=== PATIENT | male | born 1945 | race Caucasian/White ===

== ENCOUNTER 2020-09-24 17:33 | Inpatient (IN) | payer MEDICARE ==
[~2020-09-24] VITALS: Ht 162.6 cm; Wt 57.6 kg
[~2020-09-24 17:33] MED LIST: ASPI-605 PO; LISI10TA30 PO; SIMV10TA98 PO
--- NOTE | 2020-09-24 17:51 | NUR ---
YOSEF FROM HOME TO ER BED 2. AAOX4. NOT IN RESP DISTRESS. BROUGHT IN FOR R WRIST OPEN FRACTURE. PT WAS HYPOGLYCEMIC OF 35 AND FELL LANDING ON HIS ARM. NOTED POSITIVE DEFORMITY AND AN KARIS WOUND ON THE R WRST. PEDAL PULSE APPRECIATED, NORMAL COLOR AND TEMP, ABLE TO FEEL SENSATION AND MOVE. CURENT BS IS 122. PT WAS GIVEN D10 BY EMS WEIGHT LOSS SALES CONSULTANT. WAS AT THE BEDSIDE FOR EVAL. ORDERS RECEIVED AND WILL CINTHIA OUT.
--- NOTE | 2020-09-24 17:56 | NUR ---
CALLED DR. HARRIS NOT FORECLOSURE CLERK... CALLING DR. CRUZ
[2020-09-24] MEDS ORDERED: LINA290C PO (17:58)
--- NOTE | 2020-09-24 17:58 | NUR ---
CALLED DR. CRUZ [phone] WILL BE PAGED.
[2020-09-24] MEDS ORDERED: CLINDAMYCIN 900 MG in IV D5W 100 ML IV ONE (18:00)
[2020-09-24] MEDS ORDERED: CLINDAMYCIN 900 MG/6 ML VIAL ONE (18:07)
[2020-09-24] MEDS ORDERED: LIDOCAINE HCL/MPF 1% 30 ML VIAL IJ ONE (18:11)
[2020-09-24] MEDS ORDERED: FENTANYL PF 100MCG/2ML AMPUL ONE (18:12)
[2020-09-24] MEDS ORDERED: LIDOCAINE HCL/PF 1% 30 ML SDV IJ ONE (18:30)
[2020-09-24] MEDS ORDERED: FENTANYL PF 100MCG/2ML AMPUL IV ONE (18:30)
[2020-09-24 18:51] LABS: BASOPHILS # (AUTO) 0.1 /CMM (0.0-0.2); BASOPHILS % (AUTO) 0.5 % (0.0-2.0); EOSINOPHILS % (AUTO) 0.2 % (0.0-6.0); HEMATOCRIT 36 % (39-51); HEMOGLOBIN 12.2 g/dL (13.5-17.5); LYMPHOCYTES # (AUTO) 0.8 /CMM (0.8-4.8); LYMPHOCYTES % (AUTO) 7.6 % (20.0-44.0); MEAN CORPUSCULAR HGB CONC 33 g/dl (31.0-36.0); MEAN CORPUSCULAR VOLUME 93 fL (80-96); MONOCYTES # (AUTO) 0.3 /CMM (0.1-1.30); NEUTROPHILS # (AUTO) 9.6 /CMM (1.8-8.9); NEUTROPHILS % (AUTO) 88.7 % (43.0-81.0); PLATELET COUNT (AUTO) 192 /CMM (150-450); RED BLOOD CELL COUNT(AUTO) 3.92 MIL/uL (4.5-6.0); WHITE BLOOD COUNT (AUTO) 10.8 K/uL (4.3-11.0)
[2020-09-24 18:58] LABS: CALCIUM, SERUM 8.6 mg/dL (8.5-10.1); CARBON DIOXIDE 28 mmol/L (21-32); CHLORIDE 100 mmol/L (98-107); CREATININE 0.9 mg/dL (0.6-1.3); GLUCOSE 70 mg/dL (74-106); POTASSIUM 4.1 mmol/L (3.5-5.1); SODIUM SERUM 137 mmol/L (136-145); UREA NITROGEN, BLOOD 22 mg/dL (7-18)
[2020-09-24 19:04] LABS: ALANINE AMINOTRANSFERASE 38 U/L (12-78); ALBUMIN 3.8 g/dL (3.4-5.0); ALCOHOL, BLOOD < 3 mg/dL (0-0); ALKALINE PHOSPHATASE 111 U/L (46-116); ASPARTATE AMINOTRANSFERASE 38 U/L (15-37); BILIRUBIN,DIRECT 0.1 mg/dL (0.0-0.2); BILIRUBIN,TOTAL 0.2 mg/dL (0.2-1.0); TOTAL PROTEIN, SERUM 6.8 g/dL (6.4-8.2)
--- NOTE | 2020-09-24 19:10 | NUR ---
EMT PLACED XEROFORM ON RT HAND AND PLACED RT HAND IN VOLAR SPLINT
--- NOTE | 2020-09-24 19:24 | NUR ---
COVID SWAB SENT TO LAB
[2020-09-24 19:32] LABS: CREATINE KINASE, TOTAL 224 U/L (39-308)
[2020-09-24] MEDS ORDERED: ACETAMINOPHEN 325 MG TABLET PO PRN (20:30)
[2020-09-24] MEDS ORDERED: DEXTROSE 50%-WATER 50 ML DISP.SYRIN IV PRN (20:30)
[2020-09-24] MEDS ORDERED: Z GUARD REMEDY 2 OZ OINT TP PRN (20:30)
[2020-09-24] MEDS ORDERED: ONDANSETRON HCL/PF 4 MG/2 ML VIAL IVP PRN (20:30)
[2020-09-24] MEDS ORDERED: TEMAZEPAM 15 MG CAPSULE PO PRN (20:30)
[2020-09-24] MEDS ORDERED: MAG HYDROX/AL HYDROX/SIMETH 30 ML UDC PO PRN (20:30)
[2020-09-24] MEDS ORDERED: MAGNESIUM HYDROXIDE 30 ML UDC PO PRN (20:30)
[2020-09-24] MEDS ORDERED: IV D5 LR 1,000 ML IV PRN (20:30)
[2020-09-24] MEDS ORDERED: MORPHINE SULFATE INJ 2 MG/ML DISP.SYRIN IV PRN (20:30)
--- NOTE | 2020-09-24 21:21 | NUR ---
REPORT GIVEN TO ALEJANDRA MENDES FOR LUCIA
--- NOTE | 2020-09-24 21:40 | NUR ---
MS RN NOTES RECEIVED REPORT FROM JESICA ROBERTS. PATIENT TRANSFERRED TO [place] 3W TO [facility]-2. PATIENT A/OX4 ABLE TO MAKE NEEDS KNOWN. ON ROOM AIR TOLERATING WELL WITH NO SOB. IV ON LAX #18G; INFUSING D5LR @ 60ML/HR;PATENT AND INTACT. SPLINT TO RIGHT WRIST; DRESSING KEPT C/D/I. ALL SAFETY MEASURES IN PLACE: BED IN LOWEST LOCKED POSITION, SIDE RAILS UPX2, CALL LIGHT WITHIN EASY REACH, BED ALARMS ON. PATIENT MEDICALLY STABLE AT THIS TIME.
--- NOTE | 2020-09-24 21:55 | NUR ---
RN NOTES - SURGERY CONSENT PATIENT ORIENTED TO ROOM, STAFF, AND UNIT. ALL BELONGINGS SIGNED AND ACCOUNTED FOR; SIGNED PATIENT BELONGINGS LIST. PATIENT SIGNED CONSENT FOR SURGERY: ORIF RIGHT RADIAL, ANESTHESIA, AND BLOOD TRANSFUSION.
[2020-09-24 22:00] VITALS: BP 143/71
[2020-09-24] MEDS: ENOXAPARIN SODIUM 30 MG/0.3 ML DISP.SYRIN SQ SCH (22:00)
[2020-09-24] MEDS: HYDROCODONE/APAP 5/325MG TABLET PO PRN (23:23)
[2020-09-24] MEDS: SIMVASTATIN 10 MG TABLET PO SCH (23:23)
--- NOTE | 2020-09-24 23:23 | NUR ---
MS RN NOTES PATIENT C/O RIGHT WRIST PAIN 01/16 PAIN. ADMINISTERED NORCO ORDERED. WILL CONTINUE TO ASSESS FOR PAIN
[2020-09-24] MEDS: BLOOD SUGAR DIAGNOSTIC 1 EACH STRIP IN SCH (23:32)
[2020-09-24] MEDS: INSULIN REGULAR, HUMAN 100 UNIT/ML 3 ML VIAL SQ PRN (23:37)
[2020-09-25] VITALS: BP 143/71
[2020-09-25] MEDS ORDERED: CLINDAMYCIN 900 MG/6 ML VIAL ONE ×2 (04:34→08:22)
[2020-09-25] MEDS ORDERED: CLINDAMYCIN IV RTU IN D5W 900 MG/50 ML PIGGYBACK IV SCH (05:00)
[2020-09-25 06:00] VITALS: BP 130/62
[2020-09-25] MEDS: BLOOD SUGAR DIAGNOSTIC 1 EACH STRIP IN SCH ×4 (06:06→23:17)
[2020-09-25] MEDS: INSULIN REGULAR, HUMAN 100 UNIT/ML 3 ML VIAL SQ PRN ×4 (06:08→23:35)
--- NOTE | 2020-09-25 06:51 | NUR ---
MS RN CLOSING NOTES PATIENT A/OX4 ABLE TO MAKE NEEDS KNOWN. ON ROOM AIR TOLERATING WELL WITH NO SOB. IV ON LFA #20G; PATENT AND INTACT. SPLINT TO RIGHT WRIST; DRESSING KEPT C/D/I. ALL SAFETY MEASURES IN PLACE: BED IN LOWEST LOCKED POSITION, SIDE RAILS UPX2, CALL LIGHT WITHIN EASY REACH, BED ALARMS ON. PATIENT MEDICALLY STABLE AT THIS TIME. MAINTAINED NPO DIET. AWAITING FOR PATIENT TO BE PICKED UP FOR SURGERY. WILL ENDORSE LUCIA TO ONCOMING MORNING RN.
[2020-09-25 06:56] LABS: BASOPHILS % (AUTO) 0.4 % (0.0-2.0); EOSINOPHILS % (AUTO) 0.4 % (0.0-6.0); HEMATOCRIT 34 % (39-51); HEMOGLOBIN 11.3 g/dL (13.5-17.5); LYMPHOCYTES # (AUTO) 0.8 /CMM (0.8-4.8); LYMPHOCYTES % (AUTO) 12.2 % (20.0-44.0); MEAN CORPUSCULAR HGB CONC 34 g/dl (31.0-36.0); MEAN CORPUSCULAR VOLUME 92 fL (80-96); MONOCYTES # (AUTO) 0.5 /CMM (0.1-1.30); MONOCYTES % (AUTO) 8.2 % (2.0-12.0); NEUTROPHILS # (AUTO) 4.9 /CMM (1.8-8.9); NEUTROPHILS % (AUTO) 78.8 % (43.0-81.0); PLATELET COUNT (AUTO) 184 /CMM (150-450); RED BLOOD CELL COUNT(AUTO) 3.65 MIL/uL (4.5-6.0); WHITE BLOOD COUNT (AUTO) 6.3 K/uL (4.3-11.0)
[2020-09-25 07:18] LABS: CALCIUM, SERUM 8.4 mg/dL (8.5-10.1); CREATININE 0.8 mg/dL (0.6-1.3); MAGNESIUM 2.2 mg/dL (1.8-2.4); POTASSIUM 4.4 mmol/L (3.5-5.1)
[2020-09-25 07:30] LABS: THYROID STIMULATING HORMONE 1.665 uIU/mL (0.358-3.74)
--- NOTE | 2020-09-25 07:30 | NUR ---
MS RN NOTES PATIENT IN BED ALERT ORIENTED X 4. NO ACUTE DISTRESS NOTED. BREATHING UNLABORED. IV ACCESS PATENT AND INTACT, NO REDNESS, NO SWELLING NOTED. NPO FOR SURGERY THIS AM. SAFETY MEASURES IN PLACE. CALL LIGHT WITHIN REACH. WILL CONTINUE TO MONITOR ACCORDINGLY
[2020-09-25] MEDS ORDERED: BACITRACIN 50000 UNITS/VIAL ONE (07:38)
[2020-09-25] MEDS ORDERED: BUPIVACAINE 0.5 % PF 150 MG/30 ML VIAL ONE (07:38)
[2020-09-25] MEDS ORDERED: ANESTHESIA TRAY IN PYXIS 1 EA TRAY MC ONE (07:38)
--- NOTE | 2020-09-25 07:49 | NUR ---
MS ROBERTS NOTES - SURGERY GAVE REPORT TO KIRBY ROBERTS OR, PATIENT WAS TAKEN TO SURGERY. PATIENT MEDICALLY STABLE AT THIS TIME.
[2020-09-25] MEDS ORDERED: FENTANYL PF 100MCG/2ML AMPUL ONE ×2 (07:57)
[2020-09-25] MEDS ORDERED: VANCOMYCIN 1 GM VIAL ONE (08:13)
[2020-09-25] MEDS: ASPIRIN EC 81 MG TABLET.DR PO SCH (09:00)
[2020-09-25] MEDS: LISINOPRIL (10MG) 10 MG TABLET PO SCH (09:00)
[2020-09-25] MEDS ORDERED: SIMVASTATIN 10 MG TABLET PO SCH (09:00)
[2020-09-25] MEDS ORDERED: LINZESS 290 MCG PO SCH (09:00)
[2020-09-25 10:45] VITALS: BP 152/64
--- NOTE | 2020-09-25 10:45 | NUR ---
MS RN NOTES PATIENT CAME BACK FROM SURGERY, REPORT GIVEN BY CESARIO ROBERTS. ALERT ORIENTED X 4. NO ACUTE DISTRESS NOTED.VITAL SIGNS STABLE. RIGHT HAND AND FOREARM SURGICAL DRESSING WITH DARRON WRAP INTACT CLEAN AND DRY. NO COMPLAINT OF PAIN AT THIS TIME. SAFETY MEASURES IN PLACE. CALL LIGHT WITHIN REACH. WILL CONTINUE TO MONITOR ACCORDINGLY.
[2020-09-25 11:00] VITALS: BP 144/63
--- NOTE | 2020-09-25 11:45 | NUR ---
MS RN NOTES PATIENT ALERT ORIENTED X 4. NO ACUTE DISTRESS NOTED. VITAL SIGNS REMAIN STABLE. NO BLEEDING NOTED. NO COMPLAINT OF PAIN AT THIS TIME. SAFETY MEASURES IN PLACE. CALL LIGHT WITHIN REACH. WILL CONTINUE TO MONITOR ACCORDINGLY.
[2020-09-25] MEDS ORDERED: MORPHINE SULFATE INJ 4 MG/ML DISP.SYRIN IV PRN (12:00)
[2020-09-25] MEDS: HYDROCODONE/APAP 5/325MG TABLET PO PRN (12:29)
[2020-09-25] MEDS ORDERED: CLINDAMYCIN 900 MG in IV D5W 50 ML IV SCH (13:00)
[2020-09-25] MEDS: CLINDAMYCIN 600 MG in IV D5W 50 ML IV SCH ×2 (14:56→20:40)
[2020-09-25] MEDS: IV D5/0.45 NACL W/20 MEQ KCL 1L IV PRN (14:56)
--- NOTE | 2020-09-25 19:00 | NUR ---
MS RN CLOSING NOTES PATIENT IN BED ALERT ORIENTED X 4. NO ACUTE DISTRESS NOTED. BREATHING UNLABORED. IV ACCESS PATENT AND INTACT, NO REDNESS, NO SWELLING NOTED.VITAL SIGNS REMAIN STABLE TROUGH OUT THE SHIFT. RIGHT FOREARM/HAND SURGICAL DRESSING CLEAN DRY AND INTACT. SAFETY MEASURES IN PLACE. CALL LIGHT WITHIN REACH. WILL ENDORSE TO NIGHT NURSE FOR CONTINUITY OF CARE.
[2020-09-25] MEDS: HYDROCODONE/APAP 10/325MG TABLET PO PRN (19:52)
--- NOTE | 2020-09-25 19:55 | NUR ---
MS/RN OPENING NOTE RECEIVED PATIENT RESTING IN BED. AWAKE, ALERT AND ORIENTED X 3. ABLE TO MAKE NEEDS KNOWN. COMPLAINTS OF PAIN TO RIGHT WRIST - GIVEN PRN NORCO WITH PENDING RESULT. IV ACCESS TO LEFT AC INTACT AND PATENT. CONTINUES ON IV D51/2NS AND [id number]. CONTINUES ON CLINDAMYCIN IV ABX. CALL LIGHT WITHIN REACH. ASPIRATION, FALL AND SAFETY PRECAUTIONS MAINTAINED. WILL CONTINUE TO MONITOR.
[2020-09-25 20:00] VITALS: BP 144/59
[2020-09-25] MEDS: SIMVASTATIN 10 MG TABLET PO SCH (23:17)
[2020-09-25] MEDS: ENOXAPARIN SODIUM 30 MG/0.3 ML DISP.SYRIN SQ SCH (23:19)
[2020-09-26] MEDS: HYDROCODONE/APAP 10/325MG TABLET PO PRN (04:36)
[2020-09-26] MEDS: BLOOD SUGAR DIAGNOSTIC 1 EACH STRIP IN SCH ×2 (06:15→11:27)
[2020-09-26] MEDS: INSULIN REGULAR, HUMAN 100 UNIT/ML 3 ML VIAL SQ PRN ×2 (06:51→11:49)
[2020-09-26 06:54] LABS: BASOPHILS % (AUTO) 0.4 % (0.0-2.0); EOSINOPHILS % (AUTO) 0.1 % (0.0-6.0); HEMATOCRIT 37 % (39-51); LYMPHOCYTES # (AUTO) 0.9 /CMM (0.8-4.8); LYMPHOCYTES % (AUTO) 12.5 % (20.0-44.0); MEAN CORPUSCULAR HGB CONC 33 g/dl (31.0-36.0); MEAN CORPUSCULAR VOLUME 94 fL (80-96); MONOCYTES # (AUTO) 0.6 /CMM (0.1-1.30); MONOCYTES % (AUTO) 8.3 % (2.0-12.0); NEUTROPHILS # (AUTO) 5.5 /CMM (1.8-8.9); NEUTROPHILS % (AUTO) 78.7 % (43.0-81.0); PLATELET COUNT (AUTO) 178 /CMM (150-450); RED BLOOD CELL COUNT(AUTO) 3.88 MIL/uL (4.5-6.0)
[2020-09-26] MEDS: IV D5/0.45 NACL W/20 MEQ KCL 1L IV PRN (06:59)
--- NOTE | 2020-09-26 07:15 | NUR ---
MS/RN CLOSING NOTE PATIENT CURRENTLY RESTING IN BED. AWAKE, ALERT AND ORIENTED X 3. ABLE TO MAKE NEEDS KNOWN. IV ACCESS TO LEFT AC INTACT AND PATENT. CONTINUES ON IV D51/2NS AND [id number]. CONTINUES ON CLINDAMYCIN IV ABX. BLOOD GLUCOSE LEVEL WAS 248 THIS AM. GIVEN INSULIN PER SS. CALL LIGHT WITHIN REACH. ASPIRATION, FALL AND SAFETY PRECAUTIONS MAINTAINED. WILL CONTINUE TO MONITOR
--- NOTE | 2020-09-26 07:32 | NUR ---
MS RN OPENING NOTES RECEIVED PATIENT IN BED, AWAKE, A/O X3. PATIENT ON ROOM AIR; BREATHING EVEN AND UNLABORED; NO SOB NOTED AT THIS TIME. NO COMPLAINS OF PAIN AT THIS MOMENT. LFA IV ACCESS G # 20 PRESENT AND INTACT INFUSING KCL 20MEQ IN D5 1/2NS @75 MLS/HR. SAFETY PRECAUTIONS IN PLACE; BED IN LOW POSITION AND LOCKED, RAILS UP X2, CALL LIGHT WITHIN REACH. WILL CONTINUE TO MONITOR PATIENT.
[2020-09-26 07:37] LABS: CALCIUM, SERUM 8.5 mg/dL (8.5-10.1); CREATININE 0.8 mg/dL (0.6-1.3); POTASSIUM 4.7 mmol/L (3.5-5.1)
[2020-09-26 08:00] VITALS: BP 151/72
[2020-09-26] MEDS: ASPIRIN EC 81 MG TABLET.DR PO SCH (08:25)
[2020-09-26 08:26] VITALS: BP 151/72
[2020-09-26] MEDS: LISINOPRIL (10MG) 10 MG TABLET PO SCH (08:26)
[2020-09-26] MEDS ORDERED: BISACODYL (5 MG) 5 MG TABLET.DR PO ONE (08:30)
[2020-09-26] MEDS ORDERED: LACTULOSE 10 G/15 ML UDC (PYXIS) PO PRN (09:30)
[2020-09-26] MEDS ORDERED: MAGNESIUM CITRATE 296 ML BOTTLE PO ONE (12:00)
[2020-09-26] MEDS ORDERED: NA PHOS,M-B/NA PHOS,DI-BA 1 EA ENEMA RC PRN (12:00)
[2020-09-26] MEDS ORDERED: DEXT50DI8 IV (14:10)
[2020-09-26] MEDS ORDERED: TEMA15CA5 PO (14:10)
[2020-09-26] MEDS ORDERED: INSU100V28 SQ (14:10)
[2020-09-26] MEDS ORDERED: Blood Sugar Diagnostic IN (14:10)
[2020-09-26] MEDS ORDERED: Hydrocodone/Apap 10/325MG PO (14:10)
--- NOTE | 2020-09-26 16:11 | NUR ---
MS EMPLOYEE COMMUNICATIONS SPECIALIST NOTES PATIENT DISCHARGED TO [facility] IN MEDICALLY STABLE CONDITION. PATIENT A/O X4 ABLE TO MAKE HIS NEEDS KNOWN. ALL DISCHARGE PAPERWORK READY AND SIGNED BY THE PATIENT. TEACHING REGARDING MD ORDERS DONE; PATIENT VERBALIZED UNDERSTANDING. BELONGINGS ACCOUNTED FOR AND FORM SIGNED BY PATIENT WELL. FACILITY CALLED AND REPORT GIVEN TO KENNA. IV ACCESS REMOVED WITH THE WRISTBAND RIGHT BEFORE PATIENT LEFT THE UNIT AT 1608 ACCOMPANIED BY 2 forms analysis manager.
== END 2020-09-26 16:10 | DRG 510 ==
LOC: ER 17:37 → MED 21:07
PROVIDERS: ADMIT Nurse Practitioner Acute Care; ATTEND Nurse Practitioner Acute Care
PROC: 0PSH04Z Reposition Right Radius with Internal Fixation Device, Open Approach (ICD-10-PCS; principal; 2020-09-25)
DX: S42.321 Displaced transverse fracture of shaft of humerus, right arm (principal); S52.611B Displaced fracture of right ulna styloid process, initial encounter for open fracture type I or II; E87.1 Hypo-osmolality and hyponatremia; I25.10 Atherosclerotic heart disease of native coronary artery without angina pectoris; W18.30XA Fall on same level, unspecified, initial encounter; Y92.9 Unspecified place or not applicable; I10 Essential (primary) hypertension; E10.9 Type 1 diabetes mellitus without complications; Z79.82 Long term (current) use of aspirin; K58.9 Irritable bowel syndrome, unspecified; Z79.4 Long term (current) use of insulin; Z95.1 Presence of aortocoronary bypass graft; Z88.0 Allergy status to penicillin; Z79.899 Other long term (current) drug therapy; R79.89 Other specified abnormal findings of blood chemistry; E86.1 Hypovolemia; E78.5 Hyperlipidemia, unspecified; G93.89 Other specified disorders of brain
CPT/HCPCS: 36415; 70450-TC; 71045-TC; 72125-TC; 73100-TC; 73110; 80048-TC; 80061-TC; 80076-TC; 82550-TC; 82962-TC; 83735-TC; 84100-TC; 84443-TC; 84484-TC; 85025-TC; 85730-TC; 86850-TC; 87081-TC; 93307-TC; 97110-TC; 97116-TC; 97530-TC; A4565; A6253; C1713; C9803; G0378; G0480; J1650; J1815; J2405; J2704; J3010; J3370; J3480; J3490; J7060

== ENCOUNTER 2020-11-17 16:54 | Inpatient (IN) | payer MEDICARE ==
[~2020-11-17] VITALS: Ht 162.6 cm; Wt 56.7 kg
[~2020-11-17 16:54] MED LIST changes: +Blood Sugar Diagnostic IN; +DEXT50DI8 IV; +Hydrocodone/Apap 10/325MG PO; +INSU100V28 SQ; +LINA290C PO; +TEMA15CA5 PO
--- NOTE | 2020-11-17 17:00 | NUR ---
THE PATIENT IS SENT HERE FROM URGENT CARE FOR WEAKNESS/UNSTEADY GAIT WHICH STARTED IN SEPTEMBER 2020 WHENHE BROKE HIS RIGHT WRIST AFTER GLF. DENIES PAIN AT THIS TIME. RESPIRATION REGULAR AND UNLABORED. ATTACHED ON A MONITOR. WILL CONTINUE TO MONITOR THE PATIENT.
--- NOTE | 2020-11-17 17:35 | NUR ---
blood specimen collected and sent to the lab
[2020-11-17 17:47] LABS: BASOPHILS # (AUTO) 0.1 /CMM (0.0-0.2); BASOPHILS % (AUTO) 0.9 % (0.0-2.0); EOSINOPHILS % (AUTO) 1.6 % (0.0-6.0); HEMATOCRIT 37 % (39-51); HEMOGLOBIN 12.2 g/dL (13.5-17.5); LYMPHOCYTES # (AUTO) 1.5 /CMM (0.8-4.8); MEAN CORPUSCULAR HGB CONC 33 g/dl (31.0-36.0); MEAN CORPUSCULAR VOLUME 93 fL (80-96); MONOCYTES # (AUTO) 0.5 /CMM (0.1-1.30); MONOCYTES % (AUTO) 8.3 % (2.0-12.0); NEUTROPHILS # (AUTO) 3.4 /CMM (1.8-8.9); NEUTROPHILS % (AUTO) 62.2 % (43.0-81.0); PLATELET COUNT (AUTO) 239 /CMM (150-450); RED BLOOD CELL COUNT(AUTO) 3.97 MIL/uL (4.5-6.0); WHITE BLOOD COUNT (AUTO) 5.5 K/uL (4.3-11.0)
[2020-11-17 18:37] LABS: CALCIUM, SERUM 8.9 mg/dL (8.5-10.1); CARBON DIOXIDE 30 mmol/L (21-32); CHLORIDE 103 mmol/L (98-107); CREATININE 0.8 mg/dL (0.6-1.3); GLUCOSE 74 mg/dL (74-106); POTASSIUM 4.1 mmol/L (3.5-5.1); SODIUM SERUM 141 mmol/L (136-145); UREA NITROGEN, BLOOD 26 mg/dL (7-18)
[2020-11-17] MEDS ORDERED: IV NS 0.9% 1,000 ML IV ONE (20:00)
--- NOTE | 2020-11-17 21:08 | NUR ---
TELE 328-2
--- NOTE | 2020-11-17 21:25 | NUR ---
BED 310-2 ACCEEPTED
[2020-11-17 22:00] VITALS: BP 134/75
[2020-11-17] MEDS ORDERED: TEMAZEPAM 15 MG CAPSULE PO PRN (22:00)
[2020-11-17] MEDS ORDERED: HYDROCODONE/APAP 5/325MG TABLET PO PRN (22:00)
[2020-11-17] MEDS ORDERED: DEXTROSE 50%-WATER 50 ML DISP.SYRIN IV PRN (22:00)
[2020-11-17] MEDS ORDERED: ZOLPIDEM TARTRATE 5 MG TABLET PO PRN (22:00)
[2020-11-17] MEDS ORDERED: ONDANSETRON HCL/PF 4 MG/2 ML VIAL IVP PRN (22:00)
[2020-11-17] MEDS ORDERED: MAGNESIUM HYDROXIDE 30 ML UDC PO PRN (22:00)
[2020-11-17] MEDS ORDERED: ACETAMINOPHEN 325 MG TABLET PO PRN (22:00)
--- NOTE | 2020-11-17 22:00 | NUR ---
driver helper opening notes Received Pt from ER nurse ALEJANDRA Jackson. Pt arrived at the unit with a gurney and ACLS protocol. Pt is alert and orientedX4. Respiration is normal in room air. No SOB. No S/S of distress noted. Pt is able to ambulates with a steady gait and assist. VS is stable. Afebrile. Tele monitor showed sinus tash hr at 51. Pt skin is intact and refused to check his back. Pt informed that his skin is intact and no wound. Explained risks and benefits. Pt verbalized understanding. Pt's belonging is checked by MEGHAN Baird. Received admission order from JAMISON Link. Reorient Pt to the room and the use of call light. Safety precautions is maintained. Bed at low position, brakes locked, side railsupX2, hob elevated, urinal at the bedside and call light is within reach. Will continue to monitor.
--- NOTE | 2020-11-17 22:15 | NUR ---
convention planner notes Pt's blood sugar is 66. No S/S of hypoglycemia. No S/S of distress noted. Pt is awake in bed and Alert and orientedX4. Pt have insulin pump and gave him self insulin earlier. Pt stated Pt had 2 tuna sandwich earlier. Will recheck again in 15 min.
--- NOTE | 2020-11-17 22:16 | NUR ---
program project manager notes Gave a snacks and juices to Pt.
[2020-11-17] MEDS: BLOOD SUGAR DIAGNOSTIC 1 EACH STRIP IN SCH (22:17)
--- NOTE | 2020-11-17 22:30 | NUR ---
application development intern notes Pt's blood sugar is 78. No S/S of hypoglycemia. No S/S of distress noted. Pt informed that Pt had two tuna sandwich in ER. Will continue to monitor.
[2020-11-17] MEDS: INSULIN REGULAR, HUMAN 100 UNIT/ML 3 ML VIAL SQ PRN (22:39)
[2020-11-17] MEDS: IV NS 0.9% 1,000 ML IV PRN (22:59)
--- NOTE | 2020-11-17 23:25 | NUR ---
toppiece chopper notes JAMISON Link at the bedside for eval.
[2020-11-17] MEDS: ASPIRIN 81 MG TAB.CHEW PO SCH (23:48)
[2020-11-18] VITALS: BP_SYST 117; BP_SYST 127; BP_DIAS 70; BP_DIAS 79
--- NOTE | 2020-11-18 02:00 | NUR ---
senior statistical programmer notes Pt refused SCD compression. Explained risks and benefits. Offered multiple times. Pt keep refusing. Will continue to monitor.
[2020-11-18 04:00] VITALS: BP 145/71
--- NOTE | 2020-11-18 04:00 | NUR ---
autocad detailer notes Pt refused to have heart monitor on. Explained risks and benefits. Offered multiple times. Pt keep refusing. Pt stated "I always have low heart rate and my covering machine tender knows!!"
[2020-11-18 05:07] LABS: BILIRUBIN,URINE NEGATIVE (NEGATIVE); COLOR,URINE YELLOW (YELLOW); LEUKOCYTE ESTERASE ,URINE NEGATIVE (NEGATIVE); NITRITE, URINE NEGATIVE (NEGATIVE); PH,URINE 6.5 (5.0-8.0); PROTEIN,URINE NEGATIVE (NEGATIVE); UGLUCOSE NEGATIVE (NEGATIVE); UROBILINOGEN,URINE 0.2 EU/dL (0.2)
[2020-11-18 06:27] LABS: BASOPHILS % (AUTO) 0.9 % (0.0-2.0); EOSINOPHILS % (AUTO) 2.5 % (0.0-6.0); HEMATOCRIT 36 % (39-51); HEMOGLOBIN 11.7 g/dL (13.5-17.5); LYMPHOCYTES # (AUTO) 1.3 /CMM (0.8-4.8); LYMPHOCYTES % (AUTO) 23.7 % (20.0-44.0); MEAN CORPUSCULAR HGB CONC 33 g/dl (31.0-36.0); MEAN CORPUSCULAR VOLUME 94 fL (80-96); MONOCYTES # (AUTO) 0.5 /CMM (0.1-1.30); MONOCYTES % (AUTO) 8.5 % (2.0-12.0); NEUTROPHILS # (AUTO) 3.5 /CMM (1.8-8.9); NEUTROPHILS % (AUTO) 64.4 % (43.0-81.0); PLATELET COUNT (AUTO) 227 /CMM (150-450); RED BLOOD CELL COUNT(AUTO) 3.82 MIL/uL (4.5-6.0); WHITE BLOOD COUNT (AUTO) 5.5 K/uL (4.3-11.0)
[2020-11-18] MEDS: INSULIN REGULAR, HUMAN 100 UNIT/ML 3 ML VIAL SQ PRN (06:39)
[2020-11-18] MEDS: BLOOD SUGAR DIAGNOSTIC 1 EACH STRIP IN SCH ×4 (06:39→22:42)
--- NOTE | 2020-11-18 06:40 | NUR ---
material lister closing notes Pt is sitting in bed comfortably watching TV. Pt is alert and orientedX4. Respiration is normal in room air. No SOB. No S/S of distress noted. Tele monitor showed S. tash hr at 47. IV site at LFA# 20 is clean, intact and infusing well NS@ 60 ml/hr. Safety precautions is maintained. Kept Pt clean, dry and comfortable. Bed at low position, brakes locked, side rails upX2, hob elevated and call light is within reach. Will endorse to morning nurse for LUCIA.
[2020-11-18 07:16] LABS: CALCIUM, SERUM 8.3 mg/dL (8.5-10.1); CREATININE 0.8 mg/dL (0.6-1.3); MAGNESIUM 2.2 mg/dL (1.8-2.4); PHOSPHORUS 3.9 mg/dL (2.5-4.9); POTASSIUM 3.9 mmol/L (3.5-5.1)
--- NOTE | 2020-11-18 07:52 | NUR ---
TELE/RN NOTES RECEIVED PATIENT IN BED, EATING BREAKFAST. PATIENT IS ALERT AND ORIENTED X4, ABLE TO MAKE NEEDS KNOWN. NO SOB NOTED, ON ROOM AIR. NO PAIN OR DISCOMFORTS AT THIS TIME. TELE MONITOR SHOWS SINUS BRADYCARDIA AT 52 HR WITH BBB. PATIENT IS AMBULATORY WITH ASSIST. LEFT HAND TREMORS NOTED, PER PATIENT, HE HAS MILD PARKINSON'S. PATIENT HAS INSULIN PUMP THAT HE MANAGES. RN WILL STILL CHECK AND MONITOR. SAFETY PRECAUTIONS IN PLACE. BED LOW, SIDE RAILS UPX2, HOB ELEVATED, LOCKED BRAKES AND CALL LIGHTS WITHIN REACH. WILL CONTINUE TO MONITOR.
[2020-11-18 08:00] VITALS: BP 129/58
[2020-11-18] MEDS: LISINOPRIL (10MG) 10 MG TABLET PO SCH (08:51)
[2020-11-18] MEDS ORDERED: SIMVASTATIN 10 MG TABLET PO SCH (09:00)
[2020-11-18] MEDS ORDERED: ASPIRIN EC 81 MG TABLET.DR PO SCH (09:00)
--- NOTE | 2020-11-18 10:16 | NUR ---
TELE/RN NOTES PATIENT IS OUT IN THE ROOM DIRECTOR PRIVATE MUSIC THERAPY AGENCY BY ULTRA SOUND TECHNICIAN.
[2020-11-18] MEDS ORDERED: MULT-447 PO (10:44)
[2020-11-18] MEDS ORDERED: VIT1CAPS44 PO (10:44)
[2020-11-18] MEDS ORDERED: ASCO100031 PO (10:44)
[2020-11-18] MEDS ORDERED: [UNRECOGNIZED DRUG - OTHER] (10:44)
[2020-11-18] MEDS ORDERED: ZINC50TA69 PO (10:44)
[2020-11-18] MEDS ORDERED: CHOL200013 PO (10:44)
[2020-11-18] MEDS ORDERED: MAGN400T8 PO (10:44)
--- NOTE | 2020-11-18 10:45 | NUR ---
MS/RN NOTES PATIENT CAME BACK FROM MRI. NO APPARENT RESPIRATORY DISTRESS NOTED. NO COMPLAINED OF PAIN AT THIS TIME. WILL CONTINUE TO MONITOR.
--- NOTE | 2020-11-18 11:35 | NUR ---
MS/RN NOTES BS 173MG/DL PATIENT SELF CARE INSULIN ADMINISTRATION. WILL CONTINUE TO MONITOR.
--- NOTE | 2020-11-18 12:22 | NUR ---
[address] [address] Judge note: director of therapy services received request to meet with patient, per patient's request to discuss code status. SW provided patient with information about POLST options and explained that the patient can discuss code status with his physician. No SS intervention at this time, however SS will follow up as needed.
[2020-11-18 16:00] VITALS: BP 149/75
[2020-11-18] MEDS: MAGNESIUM OXIDE 500 MG PO SCH (16:45)
[2020-11-18] MEDS: ZINC GLUCONATE 50 MG PO SCH (16:46)
[2020-11-18] MEDS: PRESERVISION AREDS2 PO SCH (16:46)
[2020-11-18] MEDS: [UNRECOGNIZED DRUG - OTHER] PO SCH (16:46)
[2020-11-18] MEDS: CHOLECALCIFEROL PO SCH (16:47)
[2020-11-18] MEDS: ASCORBIC ACID 500 MG TABLET PO SCH (16:50)
[2020-11-18] MEDS: MULTIVIT W/MINERALS 1 TAB TABLET PO SCH (16:50)
[2020-11-18] MEDS: IV NS 0.9% 1,000 ML IV PRN (17:18)
--- NOTE | 2020-11-18 18:57 | NUR ---
MS/RN CLOSING NOTES PATIENT IN BED, IS ALERT AND ORIENTED X4, ABLE TO MAKE NEEDS KNOWN. NO SOB NOTED, ON ROOM AIR. NO PAIN OR DISCOMFORTS AT THIS TIME. PATIENT IS AMBULATORY WITH ASSIST. LEFT HAND TREMORS NOTED, PER PATIENT, HE HAS MILD PARKINSON'S. PATIENT HAS INSULIN PUMP THAT HE MANAGES. RN WILL STILL CHECK AND MONITOR. SAFETY PRECAUTIONS IN PLACE. BED LOW, SIDE RAILS UP X2, HOB ELEVATED, LOCKED BRAKES AND CALL LIGHTS WITHIN REACH. WILL ENDORSE PATIENT TO THE NEXT SHIFT FOR CONTINUOUS MONITORING.
--- NOTE | 2020-11-18 19:15 | NUR ---
MS RN OPENING NOTES PATIENT WAS SEEN AWAKE LYING ON HIS BED. PATIENT IS ALERT AND ORIENTED X4. PATIENT IS ON ROOM AIR WITH NO RESPIRATORY DISTRESS AT THIS TIME. PATIENT HAS AN INSULIN PUMP AND IS CONTROLLING IT BY HIMSELF. PATIENT HAS AN IV ACCESS ON HIS LEFT FOREARM GAUGE#20. SAFETY PRECAUTIONS ARE IN PLACE: BED IS LOCKED, SIDE RAILS UP, AND CALL LIGHT IS WITHIN EASY REACH OF THE PATIENT. WILL CONTINUE TO MONITOR THE PATIENT.
--- NOTE | 2020-11-18 19:58 | NUR ---
MS RN NOTES Pt's BS was 82 mg/dL at 194. No insulin was administered. Will cont. to monitor.
[2020-11-18 20:00] VITALS: BP 133/60
--- NOTE | 2020-11-18 22:38 | NUR ---
MS RN NOTES PATIENT'S LP=841 MG/DL. PATIENT HAS HIS OWN INSULIN PUMP AND SELF ADMINISTERED HIS DOSE OF INSULIN. WILL CONT. TO MONITOR PATIENT.
[2020-11-18] MEDS: ASPIRIN 81 MG TAB.CHEW PO SCH (22:42)
[2020-11-19 05:59] LABS: BASOPHILS % (AUTO) 0.9 % (0.0-2.0); HEMATOCRIT 41 % (39-51); HEMOGLOBIN 13.4 g/dL (13.5-17.5); LYMPHOCYTES # (AUTO) 1.9 /CMM (0.8-4.8); LYMPHOCYTES % (AUTO) 35.8 % (20.0-44.0); MEAN CORPUSCULAR HGB CONC 33 g/dl (31.0-36.0); MEAN CORPUSCULAR VOLUME 93 fL (80-96); MONOCYTES # (AUTO) 0.4 /CMM (0.1-1.30); NEUTROPHILS # (AUTO) 2.9 /CMM (1.8-8.9); NEUTROPHILS % (AUTO) 53.3 % (43.0-81.0); PLATELET COUNT (AUTO) 243 /CMM (150-450); WHITE BLOOD COUNT (AUTO) 5.4 K/uL (4.3-11.0)
[2020-11-19 06:16] LABS: ALANINE AMINOTRANSFERASE 34 U/L (12-78); ALBUMIN 3.5 g/dL (3.4-5.0); ALKALINE PHOSPHATASE 120 U/L (46-116); ASPARTATE AMINOTRANSFERASE 26 U/L (15-37); BILIRUBIN,TOTAL 0.4 mg/dL (0.2-1.0); CALCIUM, SERUM 8.8 mg/dL (8.5-10.1); CARBON DIOXIDE 28 mmol/L (21-32); CHLORIDE 106 mmol/L (98-107); CREATININE 0.8 mg/dL (0.6-1.3); GLUCOSE 79 mg/dL (74-106); MAGNESIUM 2.2 mg/dL (1.8-2.4); PHOSPHORUS 3.7 mg/dL (2.5-4.9); POTASSIUM 4.2 mmol/L (3.5-5.1); SODIUM SERUM 140 mmol/L (136-145); TOTAL PROTEIN, SERUM 6.7 g/dL (6.4-8.2); UREA NITROGEN, BLOOD 18 mg/dL (7-18)
--- NOTE | 2020-11-19 06:29 | NUR ---
MS RN NOTES PATIENT'S VZ=555 MG/DL. PATIENT HAS HIS OWN INSULIN PUMP AND SELF ADMINISTERED HIS DOSE OF INSULIN. WILL CONT. TO MONITOR PATIENT.
[2020-11-19] MEDS: BLOOD SUGAR DIAGNOSTIC 1 EACH STRIP IN SCH (06:54)
--- NOTE | 2020-11-19 07:33 | NUR ---
MS RN OPENING NOTE RECEIVED PATIENT SITTING IN THE BED. A/O X4. ON ROOM AIR, TOLERATING WELL. NO SOB NOTED. IN NO APPARENT DISTRESS. DENIES ANY PAIN OR DISCOMFORT AT THIS TIME. IV ACCESS ON LFA #20 G, INTACT. PATIENT REFUSED TO BE HOOKED UP WITH THE IV NS. SAFETY MEASURES MAINTAINED. BED IN LOWEST POSITION, BRAKES LOCKED. SIDE RAILS UP X2. CALL LIGHT WITHIN REACH. WILL CONTINUE PLAN OF CARE.
--- NOTE | 2020-11-19 07:37 | NUR ---
MS RN CLOSING NOTES PATIENT WAS SEEN AWAKE SITTING ON HIS BED. PATIENT IS ALERT AND ORIENTED X4. PATIENT IS ON ROOM AIR WITH NO RESPIRATORY DISTRESS AT THIS TIME. PATIENT HAS AN INSULIN PUMP AND IS CONTROLLING IT BY HIMSELF. PATIENT HAS AN IV ACCESS ON HIS LEFT FOREARM GAUGE#20. SAFETY PRECAUTIONS ARE IN PLACE: BED IS LOCKED, SIDE RAILS UP, AND CALL LIGHT IS WITHIN EASY REACH OF THE PATIENT. ENDORSED CARE TO DAY SHIFT NURSE.
[2020-11-19 08:00] VITALS: BP 154/61
[2020-11-19] MEDS: [UNRECOGNIZED DRUG - OTHER] PO SCH (08:04)
[2020-11-19] MEDS: PRESERVISION AREDS2 PO SCH (08:04)
[2020-11-19] MEDS: CHOLECALCIFEROL PO SCH (08:05)
[2020-11-19] MEDS: MAGNESIUM OXIDE 500 MG PO SCH (08:05)
[2020-11-19] MEDS: MULTIVIT W/MINERALS 1 TAB TABLET PO SCH (08:10)
[2020-11-19] MEDS: ASCORBIC ACID 500 MG TABLET PO SCH (08:10)
[2020-11-19] MEDS: ZINC GLUCONATE 50 MG PO SCH (08:10)
[2020-11-19 08:11] VITALS: BP 154/61
[2020-11-19] MEDS: LISINOPRIL (10MG) 10 MG TABLET PO SCH (08:11)
--- NOTE | 2020-11-19 11:10 | NUR ---
MS RN NOTE: DISCHARGE PATIENT DISCHARGED. HEALTH TEACHING AND DISCHARGE INSTRUCTIONS GIVEN. PT. VERBALIZE UNDERSTANDING. BELONGINGS AND MEDICATIONS GIVEN TO THE PT. ACCOMPANIED DOWNSTAIRS. PT WAS PICKED UB BY MIRIAN (FRIEND). ID WRISTBAND AND IV LINE REMOVED.
[2020-11-19] MEDS ORDERED: SIMVASTATIN 10 MG TABLET PO SCH (22:00)
== END 2020-11-19 11:00 | disposition home or self-care (01) | DRG 57 ==
LOC: ER 16:54 → TELE 21:27 → MED 11-18 10:48
PROVIDERS: ADMIT Nurse Practitioner Acute Care; ATTEND Nurse Practitioner Acute Care
DX: G91.2 (Idiopathic) normal pressure hydrocephalus (principal); N17.9 Acute kidney failure, unspecified; G20 Parkinson's disease; G91.9 Hydrocephalus, unspecified; I10 Essential (primary) hypertension; I25.10 Atherosclerotic heart disease of native coronary artery without angina pectoris; K58.9 Irritable bowel syndrome, unspecified; D64.9 Anemia, unspecified; E86.0 Dehydration; R29.6 Repeated falls; E78.5 Hyperlipidemia, unspecified; Z20.822 Contact with and (suspected) exposure to COVID-19; R27.0 Ataxia, unspecified; Z88.0 Allergy status to penicillin; Z79.4 Long term (current) use of insulin; Z79.899 Other long term (current) drug therapy; E10.36 Type 1 diabetes mellitus with diabetic cataract; Z95.1 Presence of aortocoronary bypass graft; Z82.0 Family history of epilepsy and other diseases of the nervous system; Z79.82 Long term (current) use of aspirin; R00.1 Bradycardia, unspecified
CPT/HCPCS: 36415; 70450-TC; 70551-TC; 80048-TC; 80053-TC; 80061-TC; 82962-TC; 83735-TC; 84100-TC; 84484-TC; 85025-TC; 87081-TC; 97116-TC; 97530-TC; C9803; G0378; J1815; J7030

== ENCOUNTER 2020-12-09 11:11 | Outpatient (CLI) | payer MEDICARE ==
[~2020-12-09 11:11] MED LIST changes: +ASCO100031 PO; -Blood Sugar Diagnostic IN; +CHOL200013 PO; -DEXT50DI8 IV; -Hydrocodone/Apap 10/325MG PO; -INSU100V28 SQ; +MAGN400T8 PO; +MULT-447 PO; -TEMA15CA5 PO; +VIT1CAPS44 PO; +ZINC50TA69 PO; +[UNRECOGNIZED DRUG - OTHER]
== END 2020-12-09 23:59 | disposition home or self-care (01) ==
LOC: MRI 11:11
DX: M47.813 Spondylosis without myelopathy or radiculopathy, cervicothoracic region (principal); M50.23 Other cervical disc displacement, cervicothoracic region; M48.03 Spinal stenosis, cervicothoracic region; M50.30 Other cervical disc degeneration, unspecified cervical region; M25.78 Osteophyte, vertebrae; G95.20 Unspecified cord compression
CPT/HCPCS: 72141-TC

== ENCOUNTER 2020-12-20 12:15 | Emergency (ER) | payer MEDICARE ==
[~2020-12-20] VITALS: Ht 162.6 cm; Wt 56.2 kg
--- NOTE | 2020-12-20 12:19 | NUR ---
CALLED TO TRIAGE NO ANSWER.
--- NOTE | 2020-12-20 12:20 | NUR ---
PT BIB SELF C/O BLE SWELLING X 4 DAYS. SENT FROM URGENT CARE TO R/O BLOOD CLOT. PT IS AAOX4, NOT IN RESPIRATORY DISTRESS, HOOKED TO SOCIAL GROUP WORKER, KEPT RESTED AND COMFORTABLE. WILL CONTINUE TO MONITOR.
--- NOTE | 2020-12-20 12:39 | NUR ---
IV LINE ESTABLISHED BLOOD DRAWN AND SENT TO LAB.
--- NOTE | 2020-12-20 12:51 | NUR ---
MANAGER CARDIAC AT BEDSIDE FOR DUPLEX SCAN.
[2020-12-20 12:54] LABS: BASOPHILS # (AUTO) 0.1 /CMM (0.0-0.2); BASOPHILS % (AUTO) 0.7 % (0.0-2.0); EOSINOPHILS % (AUTO) 1.1 % (0.0-6.0); HEMATOCRIT 38 % (39-51); HEMOGLOBIN 12.3 g/dL (13.5-17.5); LYMPHOCYTES # (AUTO) 0.4 /CMM (0.8-4.8); LYMPHOCYTES % (AUTO) 4.3 % (20.0-44.0); MEAN CORPUSCULAR HGB CONC 33 g/dl (31.0-36.0); MEAN CORPUSCULAR VOLUME 90 fL (80-96); MONOCYTES # (AUTO) 0.2 /CMM (0.1-1.30); MONOCYTES % (AUTO) 2.7 % (2.0-12.0); NEUTROPHILS # (AUTO) 8.3 /CMM (1.8-8.9); NEUTROPHILS % (AUTO) 91.2 % (43.0-81.0); PLATELET COUNT (AUTO) 303 /CMM (150-450); RED BLOOD CELL COUNT(AUTO) 4.16 MIL/uL (4.5-6.0); WHITE BLOOD COUNT (AUTO) 9.1 K/uL (4.3-11.0)
[2020-12-20 13:28] LABS: CALCIUM, SERUM 8.5 mg/dL (8.5-10.1); CARBON DIOXIDE 27 mmol/L (21-32); CHLORIDE 95 mmol/L (98-107); CREATININE 1.1 mg/dL (0.6-1.3); GLUCOSE 254 mg/dL (74-106); POTASSIUM 4.3 mmol/L (3.5-5.1); SODIUM SERUM 133 mmol/L (136-145); UREA NITROGEN, BLOOD 26 mg/dL (7-18)
[2020-12-20 13:40] LABS: ALANINE AMINOTRANSFERASE 37 U/L (12-78); ALBUMIN 3.3 g/dL (3.4-5.0); ALKALINE PHOSPHATASE 140 U/L (46-116); ASPARTATE AMINOTRANSFERASE 19 U/L (15-37); BILIRUBIN,DIRECT 0.2 mg/dL (0.0-0.2); BILIRUBIN,TOTAL 0.6 mg/dL (0.2-1.0); NT-PRO BNP 918 pg/mL (0-125); TOTAL PROTEIN, SERUM 6.6 g/dL (6.4-8.2)
[2020-12-20] MEDS ORDERED: FURO-145 PO (13:48)
[2020-12-20] MEDS ORDERED: FUROSEMIDE 20 MG TABLET ONE (13:58)
[2020-12-20] MEDS: FUROSEMIDE 20 MG TABLET PO ONE (14:05)
--- NOTE | 2020-12-20 14:05 | NUR ---
IV removed. Catheter intact and site benign. Pressure and 4x4 applied to site. No bleeding noted. Patient discharged to home in stable condition. Written and verbal after care instructions given. Patient verbalizes understanding of instruction.
[2020-12-20 14:06] VITALS: BP 128/81
== END 2020-12-20 14:07 | disposition home or self-care (01) ==
LOC: ER 12:20
DX: R60.0 Localized edema (principal); I10 Essential (primary) hypertension; E11.9 Type 2 diabetes mellitus without complications; Z98.890 Other specified postprocedural states; Z88.0 Allergy status to penicillin; Z79.899 Other long term (current) drug therapy; Z79.82 Long term (current) use of aspirin
CPT/HCPCS: 36415; 71045-TC; 80048-TC; 80076-TC; 83880; 84484-TC; 85025-TC; 93970-TC

== ENCOUNTER 2020-12-23 12:27 | Emergency (ER) | payer MEDICARE ==
[~2020-12-23] VITALS: Ht 162.6 cm; Wt 56.2 kg
[~2020-12-23 12:27] MED LIST changes: +FURO-145 PO
--- NOTE | 2020-12-23 12:46 | NUR ---
BIBRA78. NOTED LACERATION ON THE BACK OF HEAD S/P GLF, FELL BACKWARDS. PAIN SCALE OF 5/10. A/O X4. STABLE ON ROOM AIR. NO SOB. VS STABLE. MD AT BEDSIDE FOR EVAL.
[2020-12-23] MEDS ORDERED: TDAP [DIPH/PERTUSSIS/TET] 0.5 ML VIAL IM ONE ×2 (13:00→13:32)
--- NOTE | 2020-12-23 14:43 | NUR ---
DISCHARGED PT HOME IN STABLE CONDITION. A/O X4. NO SOB OR ANY DISTRESS. NO PAIN REPORTED AT THIS TIME. DISCHARGE INSTRUCTIONS GIVEN TO PT, VERBALIZED UNDERSTANDING. REFUSED TO BRING DISCHARGE PAPERS.
[2020-12-23 14:45] VITALS: BP 131/79
[2020-12-23] MEDS ORDERED: AMAN100T PO (20:35)
== END 2020-12-23 14:46 | disposition home or self-care (01) ==
LOC: ER 12:31
DX: S00.03XA Contusion of scalp, initial encounter (principal); S09.8XXA Other specified injuries of head, initial encounter; I10 Essential (primary) hypertension; I25.2 Old myocardial infarction; E11.9 Type 2 diabetes mellitus without complications; Z95.1 Presence of aortocoronary bypass graft; Z88.0 Allergy status to penicillin; Z79.82 Long term (current) use of aspirin; Z79.899 Other long term (current) drug therapy; W18.09XA Striking against other object with subsequent fall, initial encounter; Y93.89 Activity, other specified; Y92.89 Other specified places as the place of occurrence of the external cause; Y99.8 Other external cause status
CPT/HCPCS: 90471; 90715; 99283; A6403; 70450-TC; 72125-TC

== ENCOUNTER 2020-12-23 15:33 | Inpatient (IN) | payer MEDICARE ==
[~2020-12-23] VITALS: Ht 162.6 cm; Wt 54.0 kg
--- NOTE | 2020-12-23 16:00 | NUR ---
Abrasion to scalp s/p ground level fall in waiting room denies loc, neck, or back pain. Rates headache 3/10. Alert and oriented x4. In room air and denies SOB. Respiration regular and unlabored. Attached to the monitor.
--- NOTE | 2020-12-23 16:07 | NUR ---
blood specimen collected and sent to the lab
[2020-12-23 16:12] LABS: BASOPHILS % (AUTO) 0.5 % (0.0-2.0); EOSINOPHILS % (AUTO) 0.4 % (0.0-6.0); HEMATOCRIT 35 % (39-51); HEMOGLOBIN 11.6 g/dL (13.5-17.5); LYMPHOCYTES # (AUTO) 0.4 /CMM (0.8-4.8); LYMPHOCYTES % (AUTO) 4.8 % (20.0-44.0); MEAN CORPUSCULAR HGB CONC 33 g/dl (31.0-36.0); MEAN CORPUSCULAR VOLUME 90 fL (80-96); MONOCYTES # (AUTO) 0.4 /CMM (0.1-1.30); MONOCYTES % (AUTO) 4.9 % (2.0-12.0); NEUTROPHILS # (AUTO) 7.5 /CMM (1.8-8.9); NEUTROPHILS % (AUTO) 89.4 % (43.0-81.0); PLATELET COUNT (AUTO) 309 /CMM (150-450); RED BLOOD CELL COUNT(AUTO) 3.91 MIL/uL (4.5-6.0); WHITE BLOOD COUNT (AUTO) 8.4 K/uL (4.3-11.0)
--- NOTE | 2020-12-23 16:18 | NUR ---
THE PATIENT IS TAKEN TO CT
[2020-12-23 16:19] LABS: CALCIUM, SERUM 8.6 mg/dL (8.5-10.1); CARBON DIOXIDE 29 mmol/L (21-32); CHLORIDE 98 mmol/L (98-107); GLUCOSE 61 mg/dL (74-106); POTASSIUM 3.9 mmol/L (3.5-5.1); SODIUM SERUM 136 mmol/L (136-145); UREA NITROGEN, BLOOD 23 mg/dL (7-18)
--- NOTE | 2020-12-23 16:22 | NUR ---
THE PATIENT IS BACK FROM CT
[2020-12-23 16:30] LABS: ALANINE AMINOTRANSFERASE 38 U/L (12-78); ALBUMIN 3.3 g/dL (3.4-5.0); ALKALINE PHOSPHATASE 128 U/L (46-116); ASPARTATE AMINOTRANSFERASE 23 U/L (15-37); BILIRUBIN,DIRECT 0.2 mg/dL (0.0-0.2); BILIRUBIN,TOTAL 0.7 mg/dL (0.2-1.0); TOTAL PROTEIN, SERUM 6.2 g/dL (6.4-8.2)
[2020-12-23] MEDS ORDERED: MAG HYDROX/AL HYDROX/SIMETH 30 ML UDC PO PRN (17:00)
[2020-12-23] MEDS ORDERED: ZOLPIDEM TARTRATE 5 MG TABLET PO PRN (17:00)
[2020-12-23] MEDS ORDERED: DEXTROSE 50%-WATER 50 ML DISP.SYRIN IV PRN (17:00)
[2020-12-23] MEDS ORDERED: Z GUARD REMEDY 2 OZ OINT TP PRN (17:00)
[2020-12-23] MEDS ORDERED: ACETAMINOPHEN 325 MG TABLET PO PRN (17:00)
[2020-12-23] MEDS ORDERED: ONDANSETRON HCL/PF 4 MG/2 ML VIAL IVP PRN (17:00)
[2020-12-23] MEDS ORDERED: HYDROCODONE/APAP 5/325MG TABLET PO PRN (17:00)
--- NOTE | 2020-12-23 17:01 | NUR ---
CONTACT INFORMATION OBTAINED FROM PT. YESSI EDWARDS (SISTER) [phone] LEYDA JIN (SISTER) [phone]
--- NOTE | 2020-12-23 17:07 | NUR ---
COVID NEGATIVE PER LAB
--- NOTE | 2020-12-23 17:26 | NUR ---
Pt assigned to ms 325-1
--- NOTE | 2020-12-23 17:48 | NUR ---
REPORT GIVEN TO NURSE ANNE
--- NOTE | 2020-12-23 18:06 | NUR ---
THE PATIENT IS TRANSFERED TO ASSIGNED ROOM IN STABLE CONDITION AND PER POLICY.
--- NOTE | 2020-12-23 18:10 | NUR ---
MS DUTY OFFICER NOTE RECEIVED PATIENT FROM ER. BIB SELF FOR A FALL HE HAD, THEN FELL AGAIN IN THE ER WAITING ROOM. PATIENT HAS A SCALP HEMATOMA - SKIN INTACT OTHERWISE. A/O X4. VITALS - 150/83 HR 68 TEMP 98.5 RESP 18 OXYGEN 100. IV ACCESS TO LEFT FA #20 - S/L. PATIENT HAS A CANE AT THE BEDSIDE. SAFETY MEASURES IMPLEMENTED. CALL LIGHT WITHIN REACH. WILL CONTINUE TO MONITOR.
--- NOTE | 2020-12-23 18:54 | NUR ---
MS RN CLOSING NOTE WILL ENDORSE REPORT FROM ER TO QUALITY ASSURANCE INSPECTOR NURSE FOR LUCIA.
--- NOTE | 2020-12-23 19:45 | NUR ---
PATIENT NEW ADMISSION ARRIVED ON UNIT AT 1809. PT EXPRESSED CONCERNS ABOUT BLOOD SUGAR. STATES HE USUALLY TAKES INSULIN FROM INSULIN PUMP. PT BLOOD SUGAR CHECKED WITH READING OF 308 ADMINISTERED 8 UNITS OF REGULAR INSULIN ORDERED LATE AT PATIENT REQUEST.
[2020-12-23] MEDS: BLOOD SUGAR DIAGNOSTIC 1 EACH STRIP IN SCH ×2 (19:48→22:38)
[2020-12-23] MEDS: INSULIN REGULAR, HUMAN 100 UNIT/ML 3 ML VIAL SQ PRN (19:53)
[2020-12-23 20:00] VITALS: BP_SYST 110; BP_SYST 123; BP_DIAS 51; BP_DIAS 52
[2020-12-23] MEDS: IV NS 0.9% 1,000 ML IV PRN (20:09)
[2020-12-23] MEDS: MAGNESIUM HYDROXIDE 30 ML UDC PO PRN (20:09)
[2020-12-23] MEDS ORDERED: AMAN100T PO (20:35)
[2020-12-23] MEDS: SIMVASTATIN 10 MG TABLET PO SCH (22:38)
--- NOTE | 2020-12-23 22:55 | NUR ---
PT REQUESTING TO BE DNR STATUS STATES, "ID RATHER BE LET TO PASS NATURALLY. MY HEALTH HAS BEEN DECLINING OVER THE YEARS. AND DON'T WISH TO BE RESUSCITATED. MED REC UPDATED WITH AMANTADINE [address] CROFT. NEW ORDER FOR DNR STATUS GIVEN. NEW ORDER FOR AMANTADINE 100 MG DAILY RECIEVED Addendum: 12/23/20 at 2322 by ELIECER ESCOBEDO RN DESPITE NEW ORDER FOR DNR/DNI STATUS LIZZETH SANCHEZ RN REFUSING TO COSIGN NEW ORDER. STATES SHE DOES NOT WISH TO SPEAK TO PATIENT TO VERIFY WISHES FOR CODE STATUS. STATES SHE DID NOT HEAR ORDER FROM MD. DOES NOT WANT TO SPEAK TO DOCTOR REGUARDING CODE STATUS. SPOKE WITH JOSEPH RN SHE ALSO REFUSES TO VERIFY CODE STATUS CHANGE. REFUSED TO VERIFY CODE STATUS WISHES WITH PATIENT. REFUSES TO COSIGN NEW ORDER. SOCIAL SERVICE CONSULT PLACED. PATIENT INFORMED. VERBALIZED UNDERSTANDING.
[2020-12-24 05:56] LABS: BASOPHILS # (AUTO) 0.1 /CMM (0.0-0.2); BASOPHILS % (AUTO) 0.7 % (0.0-2.0); EOSINOPHILS % (AUTO) 1.1 % (0.0-6.0); HEMATOCRIT 36 % (39-51); HEMOGLOBIN 11.7 g/dL (13.5-17.5); LYMPHOCYTES # (AUTO) 0.4 /CMM (0.8-4.8); LYMPHOCYTES % (AUTO) 5.1 % (20.0-44.0); MEAN CORPUSCULAR HGB CONC 33 g/dl (31.0-36.0); MEAN CORPUSCULAR VOLUME 91 fL (80-96); MONOCYTES # (AUTO) 0.4 /CMM (0.1-1.30); MONOCYTES % (AUTO) 4.5 % (2.0-12.0); NEUTROPHILS % (AUTO) 88.6 % (43.0-81.0); PLATELET COUNT (AUTO) 299 /CMM (150-450); RED BLOOD CELL COUNT(AUTO) 3.91 MIL/uL (4.5-6.0); WHITE BLOOD COUNT (AUTO) 7.9 K/uL (4.3-11.0)
[2020-12-24 06:31] LABS: CALCIUM, SERUM 7.8 mg/dL (8.5-10.1); CREATININE 0.9 mg/dL (0.6-1.3); MAGNESIUM 2.3 mg/dL (1.8-2.4); PHOSPHORUS 3.4 mg/dL (2.5-4.9); POTASSIUM 4.5 mmol/L (3.5-5.1)
[2020-12-24] MEDS: INSULIN REGULAR, HUMAN 100 UNIT/ML 3 ML VIAL SQ PRN ×4 (06:40→21:27)
[2020-12-24] MEDS: BLOOD SUGAR DIAGNOSTIC 1 EACH STRIP IN SCH ×4 (06:40→21:28)
--- NOTE | 2020-12-24 07:35 | NUR ---
MS RN OPENING NOTES RECEIVED PT IN BED AWAKE, A/OX4. ABLE TO MAKE NEEDS KNOWN, DENIES PAIN OR ANY DISCOMFORTS AT THIS TIME. ON ROOM AIR, TOLERATING WELL, NO SOB NOTED. IV ACCESS ON LFA#20 INTACT AND PATENT WITH IVF OF NS @ 75ML/HR INFUSING WELL, NO S/S OF INFILTRATION AT SITE NOTED. SAFETY MEASURES MAINTAINED: BED IN LOWEST LOCKED POSITION, BED ALARM ON, SIDE RAILS UP X2. CALL LIGHT AND TABLE WITHIN EASY REACH OF PT. REMINDED PT NOT TO GET OUT OF BED W/O ASSISTANCE FROM STAFF AND TO USE CALL PONCE FOR ANY ASSISTANCE. WILL CONTINUE TO MONITOR PT.
[2020-12-24] MEDS: MAGNESIUM OXIDE 400 MG TABLET PO SCH (08:35)
[2020-12-24] MEDS: AMANTADINE HCL 100 MG CAPSULE PO SCH (08:35)
[2020-12-24] MEDS: LISINOPRIL (10MG) 10 MG TABLET PO SCH (08:35)
[2020-12-24] MEDS: IV NS 0.9% 1,000 ML IV PRN (09:09)
[2020-12-24 09:22] VITALS: BP_SYST 125; BP_SYST 126; BP_SYST 130; BP_DIAS 60; BP_DIAS 65; BP_DIAS 67
--- NOTE | 2020-12-24 09:24 | NUR ---
RN NOTES ORTHOSTATIC BP CHECKED PER MD ORDER: LYING 125/60, SITTING 126/65 AND STANDING 130/67. NO C/O OF DIZZINESS /LIGHTHEADEDNESS VOICED. WILL CONTINUE TO MONITOR.
--- NOTE | 2020-12-24 12:46 | NUR ---
SS Consult received for "pt. wishers to be DNR". SW will follow up at a later time.
--- NOTE | 2020-12-24 17:18 | NUR ---
RN NOTES PT NOTED WITH BLOOD SUGAR OF 65 MG/DL. NO S/S OF HYPOGLYCEMIA NOTED. PT ASKED FOR ORANGE JUICE AND DINNER TRAY WAS SERVED. PT EATING AT THIS TIME. WILL CONTINUE TO MONITOR.
--- NOTE | 2020-12-24 18:32 | NUR ---
MS RN CLOSING NOTES PT IN BED AWAKE AND RESTING AT MODERATE HIGH BACKREST POSITION. A/OX4. ABLE TO MAKE NEEDS KNOWN. TOLERATING ROOM AIR WITH NO ACUTE RESPIRATORY DISTRESS NOTED DURING SHIFT. IV ACCESS ON LFA#20 INTACT AND PATENT WITH IVF OF NS @ 75ML/HR INFUSING WELL, NO S/S OF INFILTRATION AT SITE NOTED. SAFETY MEASURES MAINTAINED: BED IN LOWEST LOCKED POSITION, BED ALARM ON, SIDE RAILS UP X2. CALL LIGHT AND BEDSIDE TABLE WITHIN EASY REACH OF PT. REMINDED PT NOT TO GET OUT OF BED W/O ASSISTANCE FROM STAFF AND TO USE CALL PONCE FOR ANY ASSISTANCE. WILL ENDORSE LUCIA TO CLOTH REELER NURSE.
--- NOTE | 2020-12-24 19:43 | NUR ---
MS RN OPENING NOTES: RECEIVED PATIENT AWAKE IN BED, BED IN LOW POSITION, CALL LIGHTS WITHIN REACH, NO COMPLAIN OF PAIN AND DISCOMFORT AT THIS TIME, A/OX4 , FALL RISK, AMBULATE WITH BED SIDE COMMODE, WITH ONGOING IV LINE AT LFA g#20 WITH ONGOIN NSS@75ML PER HOUR, BED IN LOW POSITION, CALL LIGHTS WITHIN REACH, WILL CONTINUE TO MONITOR.
[2020-12-24 20:06] VITALS: BP 139/66
[2020-12-24] MEDS: MAGNESIUM HYDROXIDE 30 ML UDC PO PRN (20:19)
[2020-12-24] MEDS: SIMVASTATIN 10 MG TABLET PO SCH (21:29)
[2020-12-25] VITALS (7 sets, daily range): BP systolic 93–150; BP diastolic 52–80
[2020-12-25] MEDS: IV NS 0.9% 1,000 ML IV PRN (03:41)
[2020-12-25] MEDS: BLOOD SUGAR DIAGNOSTIC 1 EACH STRIP IN SCH ×3 (06:44→17:25)
[2020-12-25] MEDS: INSULIN REGULAR, HUMAN 100 UNIT/ML 3 ML VIAL SQ PRN ×3 (06:48→17:24)
--- NOTE | 2020-12-25 07:20 | NUR ---
MS RN OPENING NOTES PATIENT RECEIVED ALERT AND ORIENTED X 4 WITH NO SIGNS OF DISTRESS. PATIENT ON ROOM AIR WITH EVEN AND UNLABORED BREATHING. SAFETY MEASURES ENSURED WITH BED IN LOW POSITION, CALL LIGHTS WITHIN REACH, NO COMPLAIN OF PAIN AND DISCOMFORT AT THIS TIME. PATIENT WITH IV ACCESS ON LEFT FA G#20, PATENT AND INTACT DRESSING, WITH IV FLUID OF NS AT 75ML/HR. COMFORT MEASURE PROVIDED. WILL CONTINUE TO MONITOR PATIENT.
--- NOTE | 2020-12-25 07:30 | NUR ---
MS RN CLOSING NOTES: PATIENT AWAKE IN BED, BED IN LOW POSITION, CALL LIGHTS WITHIN REACH, NO COMPLAIN OF PAIN AND DISCOMFORT AT THIS TIME, ALL NEEDS MET, KEPT CLEAN AND DRY, WILL CONTINUE TO MONITOR.
--- NOTE | 2020-12-25 08:10 | NUR ---
MS RN NOTE PATIENT SEEN BY DR. REAGAN
--- NOTE | 2020-12-25 09:25 | NUR ---
WOUND CARE CONSULT: PT PRESENTS WITH INTACT SKIN AND DRY ABRASION TO POSTERIOR SCALP, PRESENT ON ADMISSION. PT HAVING DIFFICULTY USING URINAL. PT NOTED TO BE VERY IRRITABLE. PT IS INDEPENDENT WITH BED MOBILITY AND MOSTLY CONTINENT. WILL SEE PRN.
--- NOTE | 2020-12-25 09:35 | NUR ---
MS RN NOTE PATIENT REFUSED ORAL MEDICATION AND REFUSED ANYBODY ENTERING HIS ROOM. HE SAID HE WANTS TO SEE AND SPEAK WITH THE DOCTOR. WHEN TOLD THE ELECTRIC APPLIANCE INSTALLER SAW HIM HE SAID HE DIDN'T KNOW HE WAS A DOCTOR OR HE PROBABLE FORGOT. I MENTIONED TO HIM THAT DR. RODNEY WILL SEE HIM WITHIN THE DAY, HE SAID HE DOESNT WANT TO TAKE ANY MEDICATION OR SEE ANYBODY UNTIL HE SEES THE DOCTOR. WILL CONTINUE TO MONITOR PATIENT.
--- NOTE | 2020-12-25 11:00 | NUR ---
MS RN NOTE PATIENT MORE RECEPTIVE NOW AFTER HAVING PT SERVICE. WILL CONTINUE TO MONITOR PATIENT.
[2020-12-25] MEDS: AMANTADINE HCL 100 MG CAPSULE PO SCH (12:43)
[2020-12-25] MEDS: MAGNESIUM OXIDE 400 MG TABLET PO SCH (12:43)
[2020-12-25] MEDS: LISINOPRIL (10MG) 10 MG TABLET PO SCH (12:43)
--- NOTE | 2020-12-25 14:10 | NUR ---
MS RN NOTE PATIENT SEEN BY DR. RODNEY WITH ORDER FOR DISCHARGE. PATIENT VERBALIZED UNDERSTANDING AND APPRECIATION. AWAITING ADVICE FROM FORMS DESIGNER. HEALTH TEACHING DONE REGARDING PATIENT DISCHARGE AND MEDICATION. PATIENT VERBALIZED UNDERSTANDING AND APPRECIATION. WILL CONTINUE TO MONITOR PATIENT.
--- NOTE | 2020-12-25 15:55 | NUR ---
Precision Printing Worker consult: student financial services counselor consult to discuss plan of care. Patient is a 75-year-old, male. SW met with patient at his bedside in the med-surg unit. Patient was alert and oriented x4. Patient presented calm and appeared well-groomed. SW spoke with patient's RN Immaculete who stated that the patient will be discharged to an ARU. SW met with patient and provided patient senior resources. Patient accepted the resources and thanked AMBER. PLAN: Patient will be D/C to an ARU. No further SS intervention at this time, however, SW will remain available as needed. SENIOR RESOURCES: ABUSE PREVENTION: ELDER ABUSE HOTLINE (30/01) ADULT PROTECTIVE SERVICES HOTLINE LONG-TERM CARE [facility] AREA ON AGING (HOTLINE) ADULT DAY HEALTH CARE CARE CENTERS: Private pay or [facility] funded adult day care [facility] Day Health Care [facility] , [facility] , [facility] , [facility] Adult Day Health Care , [facility] Adult Day Health Care , [facility] , [facility] , [facility] , [place] ALZHEIMERS DISEASE/DEMENTIA: Alzheimers Association Helpline [facility] Chapter www.alz.org/[facility] Department of Aging www.lacity.org Family Caregiver [place] www.caregiver.org [place] Caregiver Resources Center/Family Support www.losangelesscrc.org CANCER RESOURCES: [place] Cancer Society www.cancer.org Cancer Support Community www.CancerSupportVvsb.org: CancerCare www.cancercare.org [facility] Cancer Support Flanagan www.[facility].org COMMUNITY HEALTH ASSOCIATIONS: AARP www.aarp.org ALS Association (ask for Chantell) www.als.org [place] Diabetes Association www.diabetes.org [place] Heart Association www.heart.org [place] Lung Association www.lungusa.org [place] Parkinson Disease Association www.apdaparkinson.org [place]er Melstone , www.redcross.org Arthritis Foundation www.arthritis.org Crohns & Colitis Foundation of [place] Islander www.ccfa.org/chapters/bakariangeles National Multiple Sclerosis Society www.nationalmssociety.org Myasthenia Gravis Foundation www.myasthenia-ca.org National Stroke Association www.stroke.org CONSERVATORSHIP & GUARDIANSHIP: AARP Kylah Vasquez Legal Services Center for Health Care Rights Eldercare Information and Referral Patient Care Representative [facility] Hospital: [facility] Hospital Bar Referral Service [facility] Legal Services Office of the Public Guardian [place] EYESIGHT DISORDER RESOURCES: [place] Macular Degeneration Foundation [facility] [place] www.brajoseinstitute.org GRIEF AND BEREAVEMENT RESOURCES: The [place] , [facility] THE HOPE Connection , [facility] Be[facility]ment Center , [place]wa HEARING DISORDER RESOURCES: [place] Telephone Access Program Deaf and Disabled Telecommunications Program www.ddtp.cpu.ca.gov HearRx Hearing Centers ([place]) Better Hearing Systems , [place] GLAD ([facility] Agency on Deafness) V/ TTY; Polymerization Kettle Operator , [facility] Hearing Foundation -low income hearing aid assistance www.Novasentishearingfoundation.org [place] [facility] , Asiya HELP AT HOME CAREGIVER SUPPORT: In Home Support Services (Must have Medi-[place] to be eligible) *Ask for a list of agencies that provide services to assist with care in the home. Local Senior Centers also have listings of care providers. HOME SAFETY MODIFICATIONS AND EQUIPMENT: Senior centers have additional referrals. [place] Ushahidi and Community Investment Dept. Handyworker Program (low income) or Visit http://hcidla.[facility] valley medical centerity.org/rqx-mhzejd-dj for more information National Seating and Mobility and/or ; Forever Active www.foreverShustirmed.TrueVault Stay Home Safe www.Stayhomesafe.com LIFE ALERT RESPONSE SYSTEM: [place] Lifeline Services 595-138-1343 www. LifePayoneerys.com Life Alert 982-709-1937 www.lifealert.TrueVault Life Station 665-124-0811 www.Applandation.com Safe Return 889-730-2076 www.alz.or/safereturn Cell Phones for Seniors www.Informous MEALS AND FOOD PROGRAMS: [place] Meals on Wheels 142-038-5899 [place] Meals on Wheels [phone] [facility] [phone] [place] to the Homebound 831-396-9836 [place] to the Homebound [phone] [facility] to the Homebound [phone] [facility] to the Homebound [phone] Candie HernandezRoderick [phone] [facility] [phone] ONE Generation [phone] [facility] [phone] [facility] [phone] Meals on Wheels [phone] For all ages: $6.85/ meal w side. Delivered M-F from 10 am-1pm. Application and payment is done over the phone. Frozen meals available for weekends. Heartscape Food [facility] [phone] [facility] Precision Printing Worker [phone] [facility] [phone] [facility] Foundation- Brown bag lunches [phone] [facility] [phone] MEAL/GROCERY DELIVERY PROGRAMS: [facility] Identity Engines Gourmet Meals [phone]- [facility] [phone]- [facility] Magic Kitchen [phone] Moms Meals [phone] (ask Sanchez for Discount Select grocery stores may provide delivery. MEDICAL INSURANCE SUPPORT SERVICES: Center for Health Care Rights [phone] Health Insurance Counseling/Advocacy Programs (HICAP)-Must have Medicare. Offers counseling for Medi-[place] eligibility 303-528-6186 Department of Public Prec[employer] Worker 101-986-0024 www.cs.ca.gov Medicare 710-351-1002 www.socialsecurity.org Social Security 191-610-6806 SENIOR ACTIVITY PROGRAMS: *Contact a local senior center, adult school, recreation facility or community college for education, fitness, recreation, and social programs. Aquatic Therapy and Adapted Exercise programs through [facility] [phone] Encore at [facility] 910-906-1866 www.[facility]/encore U- Senior Friends 562-044-3246 [place] Senior Programs 170-900-8769 www.oasisnet.org Suddenly 65 www.sarmepvx07.TrueVault SENIOR CENTERS: [facility] [phone] [facility] Center[facility]ick [phone] [facility] [phone] [facility] Center[facility]olai [place] [phone] [facility] [phone] [facility] [phone] [facility] [phone] [facility] [phone] One GenerationT[facility] [phone] [facility] [phone] [facility] [phone] [facility] [phone] [facility] [phone] TRANSPORTATION: Local [facility] may have applications for transportation programs and additional resources. ACCESS Services 835-586-4638 Transportation for seniors and disabled persons 7 days a week requiring 254 hr. advance reservation. Must apply and register for program lali eligible. AccuDraft 537-441-1681 or [phone] Transportation for seniors and persons with ADA card/metro disabled card in the [facility]. M-F only. Must register for services. ONE GENERATION [phone] Serves 65 years + in conjunction with AltiGen Communicationse program. Must be registered with both programs. A to B Transport [phone] Provides wheelchair/gurney van service. Adult Medical Transport [phone] Accepts Medi-israel with prior authorization. Care Van [phone] Provides wheelchair Transport. City Wide Transportation [phone] Provides gurney service [facility] [phone] Gurney Transport. [facility] Town Transportation [phone] wheelchair & gurney transport D Transportation [phone] wheelchair & gurney transport [place] Non-Emergency Transport [phone] wheelchair & gurney transport [facility] [phone] Short Term Transportation primarily for adults with disabilities on social security income. Nominal fee may apply and a reservation is required. [facility] [phone] or [phone] [facility] [phone] [place] [address] Referral Services -[phone] For additional programs & services
[2020-12-25] MEDS ORDERED: GLUCERNA SHAKE 237 ML CAN PO SCH (17:00)
--- NOTE | 2020-12-25 19:05 | NUR ---
MS RN CLOSING NOTE PATIENT ALERT AND ORIENTED OFN BED WITH NO SIGNS OF DISTRESS. WILL BE TRANSFERRED TO [facility] PER BARREL AND RECEIVER ALIGNER ASHLEY WITH PICK-UP AROUND 1930. IV ACCESS REMOVED PER PATIENT'S REQUEST AND COVERED WITH BANDAID WITH NO SIGNS OF BLEEDING NOTED. PATIENT ENDORSED TO [facility]. COMFORT MEASURES PROVIDED. AWAITIGN PICKUP BY AMBULANCE. WILL ENDORSE TO NEXT SHIFT FOR CONTINUITY OF CARE.
--- NOTE | 2020-12-25 19:48 | NUR ---
received alert and orientated x4 reminded to call for nurse assist when getting OOB for safety own cane with patient slippers on aware he is being d/c to rehab tonight report to rehab given by the RN onday shift h/l removed
--- NOTE | 2020-12-25 21:58 | NUR ---
went for MRI neck/soine at 2019 via w/c returned at 2144 via w/c [facility] ambulance here to take him to [place] rehab belongings with pt counted his money 120.00 in his wallet he is awar wtched us count the money phone with him and his cane and senior accounting clerk and 2 bags of clothes and belongings abrasion on the back high on his head scabbed SL out
== END 2020-12-25 21:55 | DRG 605 ==
LOC: ER 15:37 → MED 17:31
DX: S00.03XA Contusion of scalp, initial encounter (principal); G91.2 (Idiopathic) normal pressure hydrocephalus; R26.0 Ataxic gait; Y92.89 Other specified places as the place of occurrence of the external cause; I25.10 Atherosclerotic heart disease of native coronary artery without angina pectoris; G20 Parkinson's disease; K58.9 Irritable bowel syndrome, unspecified; W01.0XXA Fall on same level from slipping, tripping and stumbling without subsequent striking against object, initial encounter; Z20.822 Contact with and (suspected) exposure to COVID-19; R29.6 Repeated falls; E78.5 Hyperlipidemia, unspecified; I25.2 Old myocardial infarction; E10.9 Type 1 diabetes mellitus without complications; G93.89 Other specified disorders of brain; Z79.4 Long term (current) use of insulin; I10 Essential (primary) hypertension; Z95.1 Presence of aortocoronary bypass graft; Z79.899 Other long term (current) drug therapy; Z79.82 Long term (current) use of aspirin; S00.01XA Abrasion of scalp, initial encounter; Z88.0 Allergy status to penicillin; D64.9 Anemia, unspecified; R79.89 Other specified abnormal findings of blood chemistry; I67.2 Cerebral atherosclerosis; M48.02 Spinal stenosis, cervical region
CPT/HCPCS: 36415; 70450-TC; 72125-TC; 72141-TC; 72146-TC; 72148-TC; 80048-TC; 80061-TC; 80076-TC; 82962-TC; 83735-TC; 84100-TC; 84484-TC; 85025-TC; 85730-TC; 87081-TC; 90715; 97112-TC; 97116-TC; 97530-TC; A6253; A6403; C9803; G0378; J1815; J7030

== ENCOUNTER 2021-02-16 12:11 | Outpatient (CLI) | payer MEDICARE ==
[~2021-02-16 12:11] MED LIST changes: +AMAN100T PO; -[UNRECOGNIZED DRUG - OTHER]
== END 2021-02-16 23:59 | disposition home or self-care (01) ==
LOC: LAB 12:11
PROVIDERS: ATTEND Neurological Surgery
DX: Z01.812 Encounter for preprocedural laboratory examination (principal); Z20.822 Contact with and (suspected) exposure to COVID-19
CPT/HCPCS: C9803; U0003

== ENCOUNTER 2021-02-19 08:13 | Day surgery (SDC) | payer MEDICARE ==
[~2021-02-19] VITALS: Ht 162.6 cm; Wt 73.5 kg
[2021-02-19] MEDS ORDERED: ANESTHESIA TRAY IN PYXIS 1 EA TRAY MC ONE (09:14)
--- NOTE | 2021-02-19 09:31 | NUR ---
MS/RN New admission New admission from day surgery, scheduled for ventriculopreitoneal shunt revision at 10:[address] Chambers. MRSA swab collected, patient previously swabbed for COVID-19 on 02/16/21. Consent forms signed and witnessed by RN, pre op checklist completed. Patient requesting that personal belongings be taken to the pre op room with him, refused to have valuables locked in safe, operating room nurse at bedside and agreed to take responsibility for such. Escorted to opeating room in stable condition.
[2021-02-19] MEDS ORDERED: FENTANYL PF 100MCG/2ML AMPUL ONE (10:02)
[2021-02-19] MEDS ORDERED: ROCURONIUM BROMIDE 50 MG/5 ML ONE (10:02)
[2021-02-19] MEDS ORDERED: CLINDAMYCIN 900 MG/6 ML VIAL ONE (10:04)
[2021-02-19] MEDS ORDERED: POLYMYXIN B SULFATE 500,000 UNITS ONE (10:21)
[2021-02-19] MEDS ORDERED: BUPIVACAINE 0.5 % PF 150 MG/30 ML VIAL ONE (10:21)
[2021-02-19] MEDS ORDERED: LIDOCAINE 1%-EPI 1:100,000 20 ML VIAL ONE (10:23)
[2021-02-19] MEDS ORDERED: HYDROCODONE/APAP 5/325MG TABLET PO PRN (13:30)
--- NOTE | 2021-02-19 15:57 | NUR ---
MS LAMINATOR PREFORMS NOTE DAY SURGERY PATIENT. DISCHARGED @ 1550 VIA PRIVATE CAR. PATIENT STABLE, A/O X4. S/P VENTRICULAR PERITONEAL SHUNT REVISION. STABLE ON ROOM AIR - NO SOB NOTED. NO PAIN NOTED AT THIS TIME. ALL EXITCARE AND PATIENT EDUCATION REVIEWED AND GIVEN TO PATIENT. PATIENT IS AMBULATORY AND ABLE TO TOLERATE PO. IV ACCESS REMOVED. WRISTBAND REMOVED. PATIENT ACCOMPANIED TO THE LOBBY BY MYSELF, AND DISCHARGED TO ROOMMATE. MD AWARE AND CHARGE NURSE AWARE OF DISCHARGE.
== END 2021-02-19 19:00 | disposition home or self-care (01) ==
LOC: DS 08:13 → UNDOADMIN 08:57 → MED 08:57 → UNDODISIN 15:00 → DS 19:00
PROVIDERS: ATTEND Neurological Surgery
DX: T85.09XA Other mechanical complication of ventricular intracranial (communicating) shunt, initial encounter (principal); I10 Essential (primary) hypertension; E11.9 Type 2 diabetes mellitus without complications; Z98.890 Other specified postprocedural states; Z79.899 Other long term (current) drug therapy; X58.XXXA Exposure to other specified factors, initial encounter; Y93.89 Activity, other specified; Y92.89 Other specified places as the place of occurrence of the external cause; Y99.8 Other external cause status
CPT/HCPCS: 62230; 82962 ×2; 87081; C1751 ×2; C9803; J1100; J1885; J2405; J2704; J3010; J3490 ×5; U0003; C1750; G0378

== ENCOUNTER 2021-03-19 08:28 | Outpatient (CLI) | payer MEDICARE ==
[~2021-03-19 08:28] MED LIST changes: -FURO-145 PO
== END 2021-03-19 23:59 | disposition home or self-care (01) ==
LOC: CT 08:28
PROVIDERS: ATTEND Neurological Surgery
DX: I10 Essential (primary) hypertension (principal); E78.5 Hyperlipidemia, unspecified; G91.2 (Idiopathic) normal pressure hydrocephalus; R25.1 Tremor, unspecified; R29.6 Repeated falls; I65.29 Occlusion and stenosis of unspecified carotid artery
CPT/HCPCS: 70450-TC

== ENCOUNTER 2021-03-30 08:06 | Outpatient (CLI) | payer MEDICARE | END 2021-03-30 23:59 | disposition home or self-care (01) | LOC: NM 08:06 | PROVIDERS: ATTEND Internal Medicine | DX: M41.86 Other forms of scoliosis, lumbar region (principal); R74.8 Abnormal levels of other serum enzymes | CPT/HCPCS: 78306; A9503 ==

== ENCOUNTER 2021-03-30 13:45 | Emergency (ER) | payer MEDICARE ==
[~2021-03-30] VITALS: Ht 162.6 cm; Wt 48.1 kg
--- NOTE | 2021-03-30 13:47 | NUR ---
PT YOSEF FROM HOME WAS WALKING OUTSIDE HIS HOUSE TO COME TO ED FOR A SCHEDULED BONE SCAN WHEN HIS KNEES "BUCKLED" AND HE FELL. BUE ABRASIONS NOTED. PT DENIES SYNCOPE. DENIES HEAD INJURY, - KO. PER PARAMEDICS, B/P WAS LOW AT THE SCENE. TOTAL OF 400CC NS WAS GIVEN WHIP SAWYER. BG 140. AWAITING MD COLMENARES.
--- NOTE | 2021-03-30 14:07 | NUR ---
SEEN BY DR FIRAS. PATIENT TAKEN TO RADIOLOGY FOR A BONE SCAN.
[2021-03-30] MEDS ORDERED: TDAP [DIPH/PERTUSSIS/TET] 0.5 ML VIAL IM ONE ×2 (18:25→18:30)
[2021-03-30] MEDS ORDERED: BACITRACIN ZINC OINT PACKET 1 EA PACKET TP ONE (18:30)
--- NOTE | 2021-03-30 18:40 | NUR ---
Patient discharged to home in stable condition. Written and verbal after care instructions given. Patient verbalizes understanding of instruction.IV removed. Catheter intact and site benign. Pressure and 4x4 applied to site. No bleeding noted.
[2021-03-30 19:04] VITALS: BP 115/60
== END 2021-03-30 19:04 | disposition home or self-care (01) ==
LOC: ER 13:46
DX: S60.512A Abrasion of left hand, initial encounter (principal); M25.532 Pain in left wrist; I10 Essential (primary) hypertension; E11.9 Type 2 diabetes mellitus without complications; G20 Parkinson's disease; E78.5 Hyperlipidemia, unspecified; Z95.818 Presence of other cardiac implants and grafts; Z88.0 Allergy status to penicillin; Z79.899 Other long term (current) drug therapy; Z79.82 Long term (current) use of aspirin; X58.XXXA Exposure to other specified factors, initial encounter; Y93.89 Activity, other specified; Y92.89 Other specified places as the place of occurrence of the external cause; Y99.8 Other external cause status
CPT/HCPCS: 73110; 73130-TC; 90715